=== PATIENT | female | born 1990 | race Caucasian/White ===

== ENCOUNTER 2017-04-01 21:05 | Emergency (ER) | payer MEDICAID ==
[~2017-04-01] VITALS: Ht 165.1 cm; Wt 88.5 kg
[2017-04-01 21:10] VITALS: BP_SYST 115
--- NOTE | 2017-04-01 21:15 | NUR ---
Patient placed to bed 4 for evaluation. Side rails up. Report recieved from [facility]. Will assume care at this time.
--- NOTE | 2017-04-01 21:20 | NUR ---
Patient arrived to ED a/o x 4 with c/o 3 cm laceration to the right hand. Patient reports trying to open a soup can and proceeded to cut her self at 1900. Patient was unable to control bleeding in home setting prompting ED visit. Active bleeding from site upon arrival. No redness or swelling noted. Full range of motion to extremity. Reports recent tetanus shot. Patient has no other complaints at this time. Mother at bedside. Will continue to monitor.
--- NOTE | 2017-04-01 21:20 | NUR ---
ED [facility] at bedside for medical evaluation.
[2017-04-01] MEDS ORDERED: BACITRACIN 1 GM OINT TP ONE ×2 (21:45→22:05)
--- NOTE | 2017-04-01 22:00 | NUR ---
[facility] [facility] at bedside for suture placement.
--- NOTE | 2017-04-01 22:10 | NUR ---
Right hand laceration cleansed with betadine. Bacitracin applied. Site measures approximately 3cm. Nonadherant dressing applied. Tetanus vaccination current.
[2017-04-01 22:12] VITALS: BP_SYST 115
--- NOTE | 2017-04-01 22:12 | NUR ---
Patient given written and verbal discharge instructions and verbalizes understanding. ER MD discussed with patient the results and treatment provided. Patient in stable condition. ID arm band removed. No Rx given. Patient educated on pain management, suture care and to follow up with PMD for suture removal. Pain Scale 2/10 tolerable for patient. Opportunity for questions provided and answered.
== END 2017-04-01 22:12 | disposition home or self-care (01) ==
LOC: SED 21:05
DX: S61.411A Laceration without foreign body of right hand, initial encounter (principal); W26.8XXA Contact with other sharp object(s), not elsewhere classified, initial encounter; Y93.89 Activity, other specified; Y92.89 Other specified places as the place of occurrence of the external cause; Y99.8 Other external cause status
CPT/HCPCS: 99283